=== PATIENT | male | born 1980 | race Caucasian/White ===

== ENCOUNTER → 2025-06-20 | Outpatient (REF) | payer OTHER | LOC: NM 08:10 | PROVIDERS: ATTEND Internal Medicine Gastroenterology | DX: R10.13 Epigastric pain (principal); K44.9 Diaphragmatic hernia without obstruction or gangrene; K58.1 Irritable bowel syndrome with constipation; M45.9 Ankylosing spondylitis of unspecified sites in spine; Z68.23 Body mass index [BMI] 23.0-23.9, adult; Z86.0101 Personal history of adenomatous and serrated colon polyps; Z87.891 Personal history of nicotine dependence | CPT/HCPCS: 78227; A9537 ==